=== PATIENT | female | born 1985 | race Caucasian/White ===

== ENCOUNTER 2022-01-10 10:18 | Emergency (ER) | payer OTHER ==
[~2022-01-10] VITALS: Ht 157.5 cm; Wt 68.0 kg
--- NOTE | 2022-01-10 10:33 | NUR ---
PT IS IN ROOM #2A. DR MAHER EVALUATED THE PT.
[2022-01-10] MEDS ORDERED: FLUO40CA8 PO (10:41)
[2022-01-10] MEDS ORDERED: PARO25TA16 PO (10:41)
[2022-01-10] MEDS ORDERED: ONDANSETRON 4 MG/2 ML VIAL IV ONE (10:45)
[2022-01-10] MEDS ORDERED: IV NORMAL SALINE 500 ML BAG IV ONE (10:45)
[2022-01-10] MEDS ORDERED: MECLIZINE HCL 25 MG TABLET PO ONE (10:45)
[2022-01-10 10:51] LABS: HEMATOCRIT 40.6 % (31.2-41.9); MEAN CORPUSCULAR HEMOGLOBIN 29.1 uug (24.7-32.8); MEAN CORPUSCULAR VOLUME 84.3 fL (75.5-95.3); PLATELET COUNT (AUTO) 280 K/uL (179-408)
[2022-01-10 10:58] LABS: CREATININE 0.9 mg/dL (0.6-1.3); POTASSIUM 3.6 mmol/L (3.5-5.1)
[2022-01-10 11:03] LABS: BILIRUBIN,TOTAL 0.5 mg/dL (0.2-1.0); TOTAL PROTEIN, SERUM 7.4 g/dL (6.4-8.2)
[2022-01-10] MEDS ORDERED: ONDANSETRON 4 MG/2 ML VIAL ONE (11:07)
[2022-01-10] MEDS ORDERED: MECLIZINE HCL 25 MG TABLET ONE (11:08)
[2022-01-10] MEDS ORDERED: MECL-159 PO (11:33)
--- NOTE | 2022-01-10 11:44 | NUR ---
PT WAS D/C'd TO HOME. D/C INSTRUCTIONS GIVEN TO THE PT BY DR MAHER.
[2022-01-10 11:45] VITALS: BP 135/68
== END 2022-01-10 11:46 | disposition home or self-care (01) ==
LOC: ER 10:24
DX: R42 Dizziness and giddiness (principal); F32.A Depression, unspecified; Z79.899 Other long term (current) drug therapy
CPT/HCPCS: 99284; 96374; 96361; 80053; 85025; 36415; J2405; J7040; A4663; J8597